=== PATIENT | female | born 1965 | race Caucasian/White ===

== ENCOUNTER 2016-03-01 13:09 | Outpatient (CLI) | payer BC | END 2016-03-01 13:10 | disposition home or self-care (01) | DX: Z12.31 Encounter for screening mammogram for malignant neoplasm of breast (principal) ==

== ENCOUNTER 2017-05-16 17:37 | Outpatient (CLI) | payer BC | END 2017-05-16 17:38 | disposition critical access hospital (66) | LOC: EMS 17:37 | PROVIDERS: ATTEND Surgery | DX: S69.91XA Unspecified injury of right wrist, hand and finger(s), initial encounter (principal); V18.0XXA Pedal cycle driver injured in noncollision transport accident in nontraffic accident, initial encounter; Y93.55 Activity, bike riding | CPT/HCPCS: A0425; A0427 ==

== ENCOUNTER 2017-05-16 18:12 | Emergency (ER) | payer BC ==
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
[2017-05-16] MEDS ORDERED: MORPHINE 10 MG/ML VIAL IVP STA (19:11)
[2017-05-16] MEDS ORDERED: KETOROLAC 60 MG/2 ML VIAL IVP STA (19:11)
--- NOTE | 2017-05-16 19:14 | XRAY Preliminary Report ---
Exam: XR WRIST 4 VIEW RT IMPRESSION: Fracture of the distal radius with possible intra-articular extension. Nondisplaced ulnar styloid fracture. [facility] SITE ID: [id number]
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
[2017-05-16] MEDS ORDERED: HYDROcod/ACET 5/325 Prepack 4 PO STA (19:41)
[2017-05-16 19:42] VITALS: BP 118/65
== END 2017-05-16 19:53 | disposition home or self-care (01) ==
LOC: EDUNIT# → ED 18:12
DX: S62.101A Fracture of unspecified carpal bone, right wrist, initial encounter for closed fracture (principal); V19.3XXA Pedal cyclist (driver) (passenger) injured in unspecified nontraffic accident, initial encounter; Y93.55 Activity, bike riding; R03.0 Elevated blood-pressure reading, without diagnosis of hypertension
CPT/HCPCS: 29105; 96374; 96375; 99283; 99284

== ENCOUNTER 2017-07-15 15:19 | Outpatient (CLI) | payer BC ==
--- NOTE | 2017-07-17 13:08 | Mammography Report ---
DIGITAL SCREENING MAMMOGRAM: 07/15/2017 COMPARISON: 03/01/2016, 08/14/2012, 03/10/2009. TECHNIQUE: Bilateral digital CC, exaggerated CC and MLO projections. FINDINGS: The breast tissue is extremely dense. There are stable post benign biopsy changes in the left breast. Multiple scattered benign appearing calcifications are seen in both breasts. No dominant mass, new architectural distortion, new suspicious microcalcifications, skin thickening or interval change. IMPRESSION: NEGATIVE. BI-RADS CATEGORY 1 - NEGATIVE. SUGGEST RETURN TO ROUTINE SCREENING IN 12 MONTHS. STANDARD QUALIFYING STATEMENTS: 1. This examination was reviewed with the aid of Computer-Aided Detection (CAD). 2. A negative or benign imaging report should not delay biopsy if clinically suspicious findings are present. Consider surgical consultation if warranted. More than 5% of cancers are not identified by imaging. 3. Dense breasts may obscure an underlying neoplasm. TD: 07/17/2017 12:54
== END 2017-07-15 15:20 | disposition home or self-care (01) ==
LOC: DI 15:19
PROVIDERS: ATTEND Radiology Diagnostic Radiology
DX: Z12.31 Encounter for screening mammogram for malignant neoplasm of breast (principal)
CPT/HCPCS: 77067

== ENCOUNTER 2019-11-02 08:17 | Outpatient (CLI) | payer OTHER ==
--- NOTE | 2019-11-03 14:14 | Mammography Report ---
BILATERAL DIGITAL SCREENING MAMMOGRAM 3D/2D: 11/02/2019 CLINICAL: Routine screening. Comparison is made to exams dated: 07/15/2017 mammogram, 03/01/2016 mammogram, and 08/14/2012 mammogram - [facility]. The tissue of both breasts is extremely dense, which lowers the sensi tivity of mammography. There are benign calcifications in both breasts. There also are benign post operative findings in th e left breast. No significant masses, calcifications, or other findings are seen in either breast. There has been no significant interval change. IMPRESSION: BENIGN There is no mammographic evidence of malignancy. A 1 year screening mammogram is recommended. This exam was interpreted at Station ID: [id number]. NOTE: For mammograms, a report in lay terms will be sent to the patient. Approximately 15% of breast malignancies will not be visualized mammographically. In the management of a palpable breast mass, a negative mammogram must not discourage biopsy of a clinically suspicious lesion. Electronically Signed By: Roque Cardenas M.D. [facility] [place]:11/02/2019 10:45:42 ACR BI-RADS Category 2: Benign Finding(s) 3342F PARENCHYMAL PATTERN: (VD) - The breast(s) demonstrate(s) extremely dense parenchyma, limiting the sen sitivity of mammography. BI-RADS CATEGORY: (2) - 2 RECOMMENDATION: (ANNUAL) - Recommend routine annual screening mammography. [id number] 1 year screening LATERALITY: (B)
== END 2019-11-02 08:18 | disposition home or self-care (01) ==
LOC: DI 08:17
PROVIDERS: ATTEND Advanced Practice Midwife
DX: Z12.31 Encounter for screening mammogram for malignant neoplasm of breast (principal)
CPT/HCPCS: 77063; 77067

== ENCOUNTER 2020-10-11 08:00 | Outpatient (CLI) | payer OTHER ==
--- NOTE | 2020-10-11 16:45 | XRAY Report ---
PROCEDURE: Ribs w/PA Chest LT INDICATIONS: CHEST PAIN TECHNIQUE: 3 views of the left ribs were acquired, along with a single view chest. COMPARISON: None FINDINGS: Surgical changes and devices: None. Bones and chest wall: No fractures or dislocations. No suspicious bony lesions. Overlying soft tis sues appear unremarkable. Lungs and pleura: No pleural effusions or pneumothorax. Lungs appear clear. Mediastinum: Mediastinal contours appear normal. Heart size is normal. IMPRESSION: No trauma found. Source of chest pain is not identified. Depending on the clinical status follow-up b y nuclear medicine bone scan may be warranted. Reviewed by: Olvin Porras MD on 10/11/2020 4:44 PM PDT Approved by: Olvin Porras MD on 10/11/2020 4:44 PM PDT Station ID: [id number]
== END 2020-10-11 23:59 | disposition home or self-care (01) ==
LOC: DI.S 08:00
PROVIDERS: ATTEND Physician Assistant Medical
DX: R07.9 Chest pain, unspecified (principal)

== ENCOUNTER 2020-11-03 08:54 | Outpatient (CLI) | payer OTHER ==
--- NOTE | 2020-11-06 09:19 | Mammography Report ---
BILATERAL DIGITAL SCREENING MAMMOGRAM 3D/2D: 11/03/2020 CLINICAL: Routine screening. Comparison is made to exams dated: 11/02/2019 mammogram, 07/15/2017 mammogram, 03/01/2016 mammogram, 08/14 mammogram, 03/10/2009 mammogram, and 03/02/2007 mammogram - [facility]. The ti ssue of both breasts is extremely dense, which lowers the sensitivity of mammography. There are benign calcifications in both breasts. There also are benign post operative findings in th e left breast. No significant masses, calcifications, or other findings are seen in either breast. There has been no significant interval change. IMPRESSION: BENIGN There is no mammographic evidence of malignancy. A 1 year screening mammogram is recommended. This exam was interpreted at Station ID: [id number]. NOTE: For mammograms, a report in lay terms will be sent to the patient. Approximately 15% of breast malignancies will not be visualized mammographically. In the management of a palpable breast mass, a negative mammogram must not discourage biopsy of a clinically suspicious lesion. Electronically Signed By: Juan Ch M.D. [facility]/penrad:11/03/2020 16:20:46 ACR BI-RADS Category 2: Benign Finding(s) 3342F PARENCHYMAL PATTERN: (VD) - The breast(s) demonstrate(s) extremely dense parenchyma, limiting the sen sitivity of mammography. BI-RADS CATEGORY: (2) - 2 RECOMMENDATION: (ANNUAL) - Recommend routine annual screening mammography. [id number] 1 year screening LATERALITY: (B)
== END 2020-11-03 08:55 | disposition home or self-care (01) ==
LOC: DI 08:54
DX: Z12.31 Encounter for screening mammogram for malignant neoplasm of breast (principal)

== ENCOUNTER 2022-12-12 14:43 | Outpatient (CLI) | payer OTHER ==
--- NOTE | 2022-12-13 15:14 | Mammography Report ---
BILATERAL DIGITAL SCREENING MAMMOGRAM 3D/2D: 12/12/2022 CLINICAL: Routine screening. Comparison is made to exams dated: 11/03/2020 mammogram, 11/02/2019 mammogram, 07/15/2017 mammogram, and 03/01/2016 mammogram - [facility]. Both breasts are extremely dense, which lowers the sensitivity of mammography (category d />75% gland ular tissue). There are benign calcifications in both breasts. There also are benign post operative findings in th e left breast. No significant masses, calcifications, or other findings are seen in either breast. There has been no significant interval change. IMPRESSION: BENIGN There is no mammographic evidence of malignancy. A 1 year screening mammogram is recommended. Based on the Tyrer Cuzick model (a risk assessment model) the patients lifetime risk is 18.4% and he r 10 year risk is 5.8%. According to the ACR, ACS, and NCCN guidelines, an annual breast MRI exam elzbieta ng with mammogram is recommended if the patients lifetime risk is 20% or greater. This exam was interpreted at Station ID: [id number]. NOTE: For mammograms, a report in lay terms will be sent to the patient. Approximately 15% of breast malignancies will not be visualized mammographically. In the management of a palpable breast mass, a negative mammogram must not discourage biopsy of a clinically suspicious lesion. Electronically Signed By: Giorgio miranda/chandana:12/12/2022 16:46:16 letter sent: No_Letter ACR BI-RADS Category 2: Benign Finding(s) 3342F PARENCHYMAL PATTERN: (VD) - The breast(s) demonstrate(s) extremely dense parenchyma, limiting the sen sitivity of mammography. BI-RADS CATEGORY: (2) - 2 Mammogram [id number] 1 year screening LATERALITY: (B)
== END 2022-12-12 14:44 | disposition home or self-care (01) ==
LOC: DI 14:43
DX: Z12.31 Encounter for screening mammogram for malignant neoplasm of breast (principal); R92.343 Mammographic extreme density, bilateral breasts

== ENCOUNTER 2023-04-28 19:15 | Outpatient (CLI) | payer OTHER ==
--- NOTE | 2023-04-28 21:42 | Ultrasound Report ---
PROCEDURE: Pelvic w/Transvaginal INDICATIONS: PELVIC PAIN TECHNIQUE: Real-time scanning was performed of the pelvic organs, with image documentation. Additional endovagi nal scanning was necessary due to incomplete visualization of the adnexal and endometrial structures by transabdominal scanning. COMPARISON: None. FINDINGS: Uterus: Uterus is retroverted and normal in size at 5.8 x 2.7 x 3.7 cm. The myometrium is homogeneo us. The endometrium measures 4 mm in combined thickness. There are prominent bilateral periuterine blood vessels. No thrombosis. Trace pelvic fluid. No uterine mass. Ovaries: Neither ovary was seen. No suspicious adnexal mass. Other: No pathologic free abdominal or pelvic fluid. IMPRESSION: Normal-appearing retroverted uterus for postmenopausal female. Prominent periuterine vasculature may be physiologic or may indicate pelvic congestion syndrome. Nonvisualization of either ovary but no suspicious enlarged adnexal mass seen. Reviewed by: Veronica Chaidez MD on 04/28/2023 9:41 PM PDT Approved by: Veronica Chaidez MD on 04/28/2023 9:41 PM PDT Station ID: [id number]
== END 2023-04-28 19:16 | disposition home or self-care (01) ==
LOC: DI 19:15
PROVIDERS: ATTEND Nurse Practitioner
DX: R59.0 Localized enlarged lymph nodes (principal); R10.2 Pelvic and perineal pain

== ENCOUNTER 2023-09-27 18:13 | Outpatient (CLI) | payer OTHER | END 2023-09-27 18:14 | disposition left against medical advice (07) | LOC: EMS 18:13 | DX: R55 Syncope and collapse (principal); R11.0 Nausea ==